=== PATIENT | female | born 1930 | race Caucasian/White ===

== ENCOUNTER 2016-12-09 09:37 | Emergency (ER) | payer MEDICARE, SELFPAY | END 2016-12-09 12:10 | disposition home or self-care (01) | LOC: ER 09:37 | DX: N39.0 Urinary tract infection, site not specified (principal); K29.70 Gastritis, unspecified, without bleeding; R10.30 Lower abdominal pain, unspecified; R11.10 Vomiting, unspecified; F03.90 Unspecified dementia, unspecified severity, without behavioral disturbance, psychotic disturbance, mood disturbance, and anxiety; Z93.1 Gastrostomy status; Z79.899 Other long term (current) drug therapy ==

== ENCOUNTER 2016-12-18 19:46 | Observation (INO) | payer MEDICARE, OTHER ==
[~2016-12-18 19:46] MED LIST: ALBUTEROL IN200 PUFF INH; ALBUTEROL0.63 MG/3 INH; BAYER CHEWABLE81 MG PO; FEOSOL325 MG PO; FISH OIL 1,0001 EACH PO; JEVITY 1.2 CA1000 ML PO; JUVEN PACKET1 EACH PO; K-SOL20 MEQ/15 PO; LASIX40 MG PO; MEGACE400 MG/10 PO; MULTIVITAMINS1 EAC1 PO; NICODERM 7MG PAT1 EA TD; OCUVITE SOFTGE1 EACH PO; SENSI CARE PET113 GM TOP; TRAVATAN Z2.5 ML OU
== END 2016-12-20 11:37 | disposition other institution (70) ==
LOC: ER 19:46 → MS 22:48
PROVIDERS: ADMIT Family Medicine
DX: J69.0 Pneumonitis due to inhalation of food and vomit (principal); J44.0 Chronic obstructive pulmonary disease with (acute) lower respiratory infection; N39.0 Urinary tract infection, site not specified; B96.20 Unspecified Escherichia coli [E. coli] as the cause of diseases classified elsewhere; Z16.30 Resistance to unspecified antimicrobial drugs; Z51.5 Encounter for palliative care; J90 Pleural effusion, not elsewhere classified; J98.11 Atelectasis; R11.2 Nausea with vomiting, unspecified; K59.00 Constipation, unspecified; N30.00 Acute cystitis without hematuria; R50.9 Fever, unspecified; N20.0 Calculus of kidney; I48.91 Unspecified atrial fibrillation; J44.9 Chronic obstructive pulmonary disease, unspecified; G30.9 Alzheimer's disease, unspecified; F02.80 Dementia in other diseases classified elsewhere, unspecified severity, without behavioral disturbance, psychotic disturbance, mood disturbance, and anxiety; Z93.1 Gastrostomy status; Z79.899 Other long term (current) drug therapy; E87.6 Hypokalemia; E83.42 Hypomagnesemia; I95.9 Hypotension, unspecified
CPT/HCPCS: 51702; 96361; 96365; 96366; 96367; 96375; 99284; 99285-25; G0378

== ENCOUNTER 2016-12-18 19:46 | Inpatient (IN) | payer MEDICARE, SELFPAY ==
[~2016-12-18] VITALS: Ht 160 cm; Wt 44.5 kg
[2016-12-18 20:40] LABS: BASO % 0.6 % (0.1-1.2); EOS # 0.1 10_X3_uL (0.0-0.4); EOS % 1.4 % (0.7-5.8); GRAN # 4.2 10_X3_uL (1.6-6.1); HEMATOCRIT 42.3 % (34-45); HEMOGLOBIN 14.4 g/dL (11.2-15.7); LYMPH # 1.8 10_X3_uL (1.2-3.7); LYMPH % 25.2 % (19.3-51.7); MEAN CORPUSCULAR HEMOGLOBIN 28.1 pg (27.0-33.0); MEAN CORPUSCULAR VOLUME 82.6 fL (79-95); MEAN PLATELET VOLUME 11.3 fl (7.5-11.5); MONO # 0.9 10_X3_uL (0.2-0.9); MONO % 12.8 % (4.7-12.5); PLATELET COUNT 213 x10_3/uL (182-369); RED BLOOD COUNT 5.12 x10_6/uL (3.9-5.2); RED CELL DISTRIBUTION WIDTH 15.2 % (11.7-14.4); WHITE BLOOD COUNT 7.1 x10_3/uL (4.0-10.0)
[2016-12-18 20:58] LABS: ALBUMIN 3.2 gm/dL (3.4-5.0); ALKALINE PHOSPHATASE 96 U/L (50-136); ALT/SGPT 12 U/L (3.5-33.9); AST/SGOT 20 U/L (7.04-26.96); BILIRUBIN,TOTAL 0.48 mg/dL (0.0-1.0); BLOOD UREA NITROGEN 15 mg/dL (7-18); CALCIUM 8.4 mg/dL (8.7-10.7); CARBON DIOXIDE 29 mmol/L (21-32); CREATININE < 0.5 mg/dL (0.6-1.3); GLUCOSE,RANDOM 137 mg/dL (70-99); LIPASE 26 U/L (6.75-60.75); POTASSIUM 3.6 mmol/L (3.5-5.1); SODIUM 129 mmol/L (136-145); TOTAL PROTEIN 6.7 gm/dL (6.4-8.2)
[2016-12-18 23:06] LABS: URINE BILIRUBIN NEGATIVE (NEGATIVE); URINE BLOOD 1+ (NEGATIVE); URINE GLUCOSE (UA) NORMAL (NORMAL); URINE KETONE NEGATIVE (NEGATIVE); URINE LEUKOCYTE ESTERASE 2+ (NEGATIVE); URINE NITRATE POSITIVE (NEGATIVE); URINE PROTEIN 1+ (NEGATIVE); UROBILINOGEN NORMAL mg/dL (<1.0)
[2016-12-18 23:14] LABS: URINE WBC >15 /[HPF] (0-5)
[2016-12-18 23:15] LABS: URINE BACTERIA 2+ (NONE SEEN)
[2016-12-19 10:16] LABS: BASO % 0.3 % (0.1-1.2); EOS % 0.7 % (0.7-5.8); GRAN # 3.4 10_X3_uL (1.6-6.1); GRAN % 58.7 % (34.0-71.1); LYMPH # 1.6 10_X3_uL (1.2-3.7); MEAN CORPUSCULAR HEMOGLOBIN 27.8 pg (27.0-33.0); MEAN CORPUSCULAR HGB CONC 33.3 g/dL (32.0-36.0); MEAN CORPUSCULAR VOLUME 83.3 fL (79-95); MEAN PLATELET VOLUME 11.6 fl (7.5-11.5); MONO # 0.7 10_X3_uL (0.2-0.9); MONO % 12.3 % (4.7-12.5); PLATELET COUNT 199 x10_3/uL (182-369); RED BLOOD COUNT 4.68 x10_6/uL (3.9-5.2); RED CELL DISTRIBUTION WIDTH 14.9 % (11.7-14.4); WHITE BLOOD COUNT 5.8 x10_3/uL (4.0-10.0)
[2016-12-19 10:27] LABS: BLOOD UREA NITROGEN 9 mg/dL (7-18); CALCIUM 8.2 mg/dL (8.7-10.7); CARBON DIOXIDE 29 mmol/L (21-32); CREATININE < 0.5 mg/dL (0.6-1.3); GLUCOSE,RANDOM 102 mg/dL (70-99); POTASSIUM 3.6 mmol/L (3.5-5.1); SODIUM 136 mmol/L (136-145)
[2016-12-20 06:47] LABS: HEMATOCRIT 37.7 % (34-45); HEMOGLOBIN 12.4 g/dL (11.2-15.7); MEAN CORPUSCULAR HEMOGLOBIN 27.8 pg (27.0-33.0); MEAN CORPUSCULAR HGB CONC 32.9 g/dL (32.0-36.0); MEAN CORPUSCULAR VOLUME 84.5 fL (79-95); RED BLOOD COUNT 4.46 x10_6/uL (3.9-5.2); RED CELL DISTRIBUTION WIDTH 15.4 % (11.7-14.4); WHITE BLOOD COUNT 9.4 x10_3/uL (4.0-10.0)
[2016-12-20 08:29] LABS: ALBUMIN 2.7 gm/dL (3.4-5.0); ALKALINE PHOSPHATASE 79 U/L (50-136); ALT/SGPT 11 U/L (3.5-33.9); AST/SGOT 22 U/L (7.04-26.96); BILIRUBIN,TOTAL 0.56 mg/dL (0.0-1.0); BLOOD UREA NITROGEN 8 mg/dL (7-18); CARBON DIOXIDE 28 mmol/L (21-32); CREATININE < 0.5 mg/dL (0.6-1.3); GLUCOSE,RANDOM 99 mg/dL (70-99); POTASSIUM 4.2 mmol/L (3.5-5.1); SODIUM 136 mmol/L (136-145); TOTAL PROTEIN 5.3 gm/dL (6.4-8.2)
[2016-12-21 07:38] LABS: HEMATOCRIT 37.5 % (34-45); HEMOGLOBIN 12.2 g/dL (11.2-15.7); MEAN CORPUSCULAR HEMOGLOBIN 27.8 pg (27.0-33.0); MEAN CORPUSCULAR HGB CONC 32.5 g/dL (32.0-36.0); MEAN CORPUSCULAR VOLUME 85.4 fL (79-95); MEAN PLATELET VOLUME 11.8 fl (7.5-11.5); RED BLOOD COUNT 4.39 x10_6/uL (3.9-5.2); RED CELL DISTRIBUTION WIDTH 15.5 % (11.7-14.4); WHITE BLOOD COUNT 8.9 x10_3/uL (4.0-10.0)
[2016-12-21 07:46] LABS: BLOOD UREA NITROGEN 9 mg/dL (7-18); CALCIUM 7.7 mg/dL (8.7-10.7); CARBON DIOXIDE 29 mmol/L (21-32); CREATININE < 0.5 mg/dL (0.6-1.3); GLUCOSE,RANDOM 94 mg/dL (70-99); POTASSIUM 3.4 mmol/L (3.5-5.1); SODIUM 136 mmol/L (136-145)
[2016-12-22 06:34] LABS: HEMOGLOBIN 12.7 g/dL (11.2-15.7); MEAN CORPUSCULAR HGB CONC 33.4 g/dL (32.0-36.0); MEAN CORPUSCULAR VOLUME 83.7 fL (79-95); MEAN PLATELET VOLUME 12.1 fl (7.5-11.5); RED BLOOD COUNT 4.54 x10_6/uL (3.9-5.2); RED CELL DISTRIBUTION WIDTH 15.4 % (11.7-14.4); WHITE BLOOD COUNT 7.1 x10_3/uL (4.0-10.0)
[2016-12-22 07:12] LABS: CALCIUM 8.1 mg/dL (8.7-10.7); CARBON DIOXIDE 27 mmol/L (21-32); CREATININE < 0.5 mg/dL (0.6-1.3); GLUCOSE,RANDOM 110 mg/dL (70-99); MAGNESIUM 1.7 mg/dL (1.8-2.4); SODIUM 132 mmol/L (136-145)
[2016-12-22 07:17] LABS: BLOOD UREA NITROGEN 19 mg/dL (7-18)
[2016-12-23 06:56] LABS: HEMATOCRIT 39.4 % (34-45); HEMOGLOBIN 12.8 g/dL (11.2-15.7); MEAN CORPUSCULAR HEMOGLOBIN 27.5 pg (27.0-33.0); MEAN CORPUSCULAR HGB CONC 32.5 g/dL (32.0-36.0); MEAN CORPUSCULAR VOLUME 84.5 fL (79-95); MEAN PLATELET VOLUME 12.1 fl (7.5-11.5); RED BLOOD COUNT 4.66 x10_6/uL (3.9-5.2); RED CELL DISTRIBUTION WIDTH 15.5 % (11.7-14.4); WHITE BLOOD COUNT 5.1 x10_3/uL (4.0-10.0)
[2016-12-23 06:58] LABS: BLOOD UREA NITROGEN 23 mg/dL (7-18); CALCIUM 8.2 mg/dL (8.7-10.7); CARBON DIOXIDE 31 mmol/L (21-32); CREATININE < 0.5 mg/dL (0.6-1.3); GLUCOSE,RANDOM 121 mg/dL (70-99); MAGNESIUM 2.1 mg/dL (1.8-2.4); POTASSIUM 3.9 mmol/L (3.5-5.1); SODIUM 136 mmol/L (136-145)
[2016-12-24 07:45] LABS: HEMATOCRIT 37.2 % (34-45); HEMOGLOBIN 12.2 g/dL (11.2-15.7); MEAN CORPUSCULAR HEMOGLOBIN 27.7 pg (27.0-33.0); MEAN CORPUSCULAR HGB CONC 32.8 g/dL (32.0-36.0); MEAN CORPUSCULAR VOLUME 84.5 fL (79-95); MEAN PLATELET VOLUME 12.4 fl (7.5-11.5); RED BLOOD COUNT 4.4 x10_6/uL (3.9-5.2); RED CELL DISTRIBUTION WIDTH 15.3 % (11.7-14.4); WHITE BLOOD COUNT 4.6 x10_3/uL (4.0-10.0)
[2016-12-24 07:47] LABS: BLOOD UREA NITROGEN 26 mg/dL (7-18); CALCIUM 8.2 mg/dL (8.7-10.7); CARBON DIOXIDE 30 mmol/L (21-32); CREATININE < 0.5 mg/dL (0.6-1.3); GLUCOSE,RANDOM 100 mg/dL (70-99); POTASSIUM 3.9 mmol/L (3.5-5.1); SODIUM 132 mmol/L (136-145)
== END 2016-12-25 11:09 | disposition home or self-care (01) | DRG 178 ==
LOC: ER 19:46 → MS 22:48
PROVIDERS: Emergency Medicine; ADMIT Family Medicine
DX: J69.0 Pneumonitis due to inhalation of food and vomit (principal); J44.0 Chronic obstructive pulmonary disease with (acute) lower respiratory infection; N39.0 Urinary tract infection, site not specified; J90 Pleural effusion, not elsewhere classified; J98.11 Atelectasis; Z51.5 Encounter for palliative care; B96.20 Unspecified Escherichia coli [E. coli] as the cause of diseases classified elsewhere; F02.80 Dementia in other diseases classified elsewhere, unspecified severity, without behavioral disturbance, psychotic disturbance, mood disturbance, and anxiety; Z16.30 Resistance to unspecified antimicrobial drugs; G30.9 Alzheimer's disease, unspecified; K59.00 Constipation, unspecified; I48.91 Unspecified atrial fibrillation; Z93.1 Gastrostomy status; E87.6 Hypokalemia; E83.42 Hypomagnesemia; I95.9 Hypotension, unspecified; R11.2 Nausea with vomiting, unspecified; K57.90 Diverticulosis of intestine, part unspecified, without perforation or abscess without bleeding; N20.0 Calculus of kidney; Z79.899 Other long term (current) drug therapy
CPT/HCPCS: 36415; 51702; 71010; 80048; 80053; 81001; 83690; 83735; 83880; 85025; 87086; 87186; 93005; 96360; 96361; 99070; 99284; 99285-25